=== PATIENT | male | born 1990 | race Caucasian/White ===

== ENCOUNTER 2024-06-30 08:55 | Emergency (ER) | payer MEDICAID ==
[~2024-06-30] VITALS: Ht 188 cm; Wt 78.0 kg
[2024-06-30 09:33] VITALS: BP 128/69; PULSE 89; RESP 16; TEMP 97.7; O2SAT 99
== END 2024-06-30 09:33 | disposition home or self-care (01) ==
LOC: ER 08:56
DX: F10.129 Alcohol abuse with intoxication, unspecified (principal); Y90.9 Presence of alcohol in blood, level not specified
CPT/HCPCS: 99281